=== PATIENT | male | born 2000 | race African-American/Black ===

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

== ENCOUNTER 2021-08-09 14:54 | Emergency (ER) | payer SELFPAY ==
[~2021-08-09] VITALS: Ht 190.5 cm; Wt 95.0 kg
[2021-08-09] MEDS ORDERED: IV RINGERS SOLUTION,LACTATED 1,000 ML IV ONE (16:00)
--- NOTE | 2021-08-09 16:17 | EKG ---
[address] [address] Test Date: 2021-08-09 Test Time: 16:06:44 Pat Name: XIN HAINES Department: Room: Gender: M [employer] Operator: DINESH : 2000 Requested By: HILLARY CARMEN Order Number: [id number] Reading MD: Cricket Mendieta Measurements Intervals [place] Rate: 69 P: 34 MN: 158 QRS: 54 QRSD: 92 T: 30 QT: 384 QTc: 413 Interpretive Statements SINUS RHYTHM NORMAL ECG RI6.02 No previous ECG available for comparison Electronically Signed On 08-11-2021 13:24:52 CDT by Cricket Mendieta
--- NOTE | 2021-08-09 16:19 | PHYS DOC ---
Past History Additional Past Medical Histor: obesity Past Surgical History: No Surgical History Smoking: Second-hand Alcohol Use: None Drug Use: None General Adult EDM: Chief Complaint: DIZZY/LIGHT HEADED HPI: HPI: Patient is a 21 year old obese male without significant past medical history who presents with 1 week history of lightheadedness. Patient states that about a week ago, just prior to symptom onset, he was given an consumed leftover stroganoff and pizza from a coworker. Since that time, he reports intermittent lightheadedness both while active working and also at rest. He denies any exacerbating or remitting factors. Patient reports associated nausea, but denies vomiting, diarrhea and pain of any kind (headache, chest pain, abdominal pain). Review of Systems: Review of Systems: Constitutional: Denies fever, chills or generalized weakness Eyes: Denies change in visual acuity, visual field deficits or discharge HENT: Denies ear pain, nasal congestion or sore throat Respiratory: Denies cough or shortness of breath Cardiovascular: Denies chest pain, palpitations or edema GI: Denies abdominal pain, nausea, vomiting, bloody stools or diarrhea : Denies dysuria or hematuria Musculoskeletal: Denies back pain or joint pain Integument: Denies rash or other skin lesion Neurologic: See HPI Current Medications: Current Meds: Current Medications Medications (Trade) Dose Ordered Sig/Stan Start Time Stop Time Status Last Admin Dose Admin Lactated Ringer's 1,000 ml @ 1,000 mls/hr 1X ONCE 08/09/21 16:00 08/09/21 16:59 Allergies: Allergies: Allergies Coded Allergies Type Severity Reaction Last Updated Verified No Known Drug Allergies 05/30/16 No Physical Exam: PE: Constitutional: Obese, well-groomed, no acute distress, non-toxic appearance. HENT: Normocephalic, atraumatic, bilateral external ears normal, oropharynx moist, no oral exudates, nose normal. Eyes: PERRL, EOMI, conjunctiva normal, no discharge. Neck: Normal range of motion, no stridor. Cardiovascular: Heart regular rate and rhythm. No apparent murmurs, rubs or gallops. Lungs & Thorax: Bilateral breath sounds clear to auscultation. Skin: Warm, dry, no erythema, no rash. Extremities: No cyanosis, no clubbing, ROM intact, no edema. Neurologic: Alert and oriented x4, normal motor function, normal sensory function, cerebellar function intact, no focal deficits noted. Current Patient Data: Labs: Laboratory Tests Test 08/09/21 16:32 White Blood Count 5.7 x10^3/uL (4.0-11.0) Red Blood Count 4.79 x10^6/uL (4.30-5.70) Hemoglobin 13.3 g/dL (13.0-17.5) Hematocrit 41.1 % (39.0-53.0) Mean Corpuscular Volume 86 fL (79-100) Mean Corpuscular Hemoglobin 28 pg (25-35) Mean Corpuscular Hemoglobin Concent 33 g/dL (31-37) Red Cell Distribution Width 15.0 % (11.5-14.5) Platelet Count 220 x10^3/uL (140-400) Neutrophils (%) (Auto) 67 % (31-73) Lymphocytes (%) (Auto) 24 % (24-48) Monocytes (%) (Auto) 6 % (0-9) Eosinophils (%) (Auto) 3 % (0-3) Basophils (%) (Auto) 1 % (0-3) Neutrophils # (Auto) 3.8 x10^3uL (1.8-7.7) Lymphocytes # (Auto) 1.4 x10^3/uL (1.0-4.8) Monocytes # (Auto) 0.3 x10^3/uL (0.0-1.1) Eosinophils # (Auto) 0.2 x10^3/uL (0.0-0.7) Basophils # (Auto) 0.1 x10^3/uL (0.0-0.2) Sodium Level 144 mmol/L (136-145) Potassium Level 3.7 mmol/L (3.5-5.1) Chloride Level 107 mmol/L (98-107) Carbon Dioxide Level 29 mmol/L (21-32) Anion Gap 8 (6-14) Blood Urea Nitrogen 7 mg/dL (8-26) Creatinine 0.7 mg/dL (0.7-1.3) Estimated GFR (Cockcroft-Gault) 174.0 BUN/Creatinine Ratio 10 (6-20) Glucose Level 101 mg/dL (70-99) Calcium Level 8.8 mg/dL (8.5-10.1) Magnesium Level 2.0 mg/dL (1.8-2.4) Total Bilirubin 0.2 mg/dL (0.2-1.0) Aspartate Amino Transf (AST/SGOT) 33 U/L (15-37) Alanine Aminotransferase (ALT/SGPT) 68 U/L (16-63) Alkaline Phosphatase 91 U/L (46-116) Troponin I High Sensitivity 8 ng/L (4-75) Total Protein 7.0 g/dL (6.4-8.2) Albumin 3.3 g/dL (3.4-5.0) Albumin/Globulin Ratio 0.9 (1.0-1.7) Vital Signs: VS - Last 72 Hours, by Label Date Time Temp Pulse Resp B/P (MAP) Pulse Ox O2 Delivery O2 Flow Rate FiO2 08/09/21 16:37 98.3 77 18 151/85 (107) 98 Room Air EKG: EKG: EKG Interpreted by Dr. Elizondo at 1608: Regular rate and rhythm 69 bpm with no ectopic beats. QT 384 ms/QTc 413 ms. No STEMI. Heart Score: C/O Chest Pain: No Course & Med Decision Making: Course & Med Decision Making Pertinent Labs and Imaging studies reviewed. (See chart for details) Patient is a 21-year-old obese male who presents with intermittent lightheadedness for the past week. Work-up today will include EKG, labs. Work-up today is very reassuring. Patient will be given prescription for meclizine as needed for dizziness. Patient reports he does not have insurance and does not have primary care, so a list of clinics for follow-up were provided to him today. Return precautions were provided as well. Patient understands and is agreeable to discharge plan. Dragon Disclaimer: Dragon Disclaimer: This electronic medical record was generated, in whole or in part, using a voice recognition dictation system. Departure Departure: Impression: Primary Impression: Episodic lightheadedness Additional Impression: Elevated blood pressure reading Disposition: HOME / SELF CARE / HOMELESS Condition: STABLE Referrals: PCP,NO (PCP) Patient Instructions: Dizziness, [id number], Obesity, [id number] Additional Instructions: EMERGENCY DEPARTMENT GENERAL DISCHARGE INSTRUCTIONS Thank you for coming to [facility] (ED) today and trusting us with you care. We trust that you had a positive experience in our Emergency Department. If you wish to speak to the department management, you may call the director at [phone]. YOUR FOLLOW UP INSTRUCTIONS ARE FOLLOWS: 1. Follow up with your primary care doctor. If you do not have a primary doctor, please ask for a resource list of physicians or clinics that may be able to assist you with follow up care. 2. The emergency provider has interpreted your imaging studies, if any were ordered. The radiology phone triage specialist also reviewed them. If there is a change in the findings, you will be notified in 48 hours when at all possible. 3. If a lab test or culture has been done, your results will be reviewed and you will be notified if you need a change in treatment. 4. Follow instructions verbalized to you and refer to the printouts if needed. ADDITIONAL INSTRUCTIONS AND INFORMATION: 1. Your care today has been supervised by a physician who is specially trained in emergency care. Many problems require more than one evaluation for a complete diagnosis and treatment. We recommend that you schedule your follow up appointment as recommended to ensure complete treatment of you illness or injury. If you are unable to obtain follow up care and continue to have a problem, or if your condition worsens, we recommend that you return to the ED. 2. We are not able to safely determine your condition over the phone nor are we able to give sound medical advice over the phone. For these safety reasons, if you call for medical advice we will ask you to come to the ED for further evaluation. 3. If you have any questions regarding these discharge instructions please call the ED at [phone]. SAFETY INFORMATION: In the interest of safety, wellness, and injury prevention; we encourage you to wear your seat belt, if you smoke; quite smoking, and we encourage family to use a protective helmet for bicycling and other sporting events that present an increased risk for head injury. IF YOUR SYMPTOMS WORSEN OR NEW SYMPTOMS DEVELOP, OR YOU HAVE CONCERNS ABOUT YOUR CONDITION; OR IF YOUR CONDITION WORSENS WHILE YOU ARE WAITING FOR YOUR FOLLOW UP APPOINTMENT; EITHER CONTACT YOUR PRIMARY CARE DOCTOR, THE PHYSICIAN WHOSE NAME AND NUMBER YOU WERE GIVEN, OR RETURN TO THE ED IMMEDIATELY. Scripts Meclizine Hcl (MECLIZINE HCL) 25 Mg Tablet 1 TAB PO PRN TID for dizziness, #30 TAB 0 Refills Prov: HILLARY CARMEN 08/09/21 HILLARY CARMEN Aug 09, 2021 16:19
[2021-08-09 16:37] VITALS: BP 151/85
[2021-08-09 16:50] LABS: BASO # 0.1 x10^3/uL (0.0-0.2); BASO % 1 % (0-3); EOS # 0.2 x10^3/uL (0.0-0.7); EOS % 3 % (0-3); HEMATOCRIT 41.1 % (39.0-53.0); HEMOGLOBIN 13.3 g/dL (13.0-17.5); LYMPH # 1.4 x10^3/uL (1.0-4.8); LYMPH % 24 % (24-48); MEAN CORPUSCULAR HEMOGLOBIN 28 pg (25-35); MEAN CORPUSCULAR HGB CONC 33 g/dL (31-37); MEAN CORPUSCULAR VOLUME 86 fL (79-100); MONO # 0.3 x10^3/uL (0.0-1.1); MONO % 6 % (0-9); NEUT # 3.8 x10^3uL (1.8-7.7); NEUT % 67 % (31-73); PLATELET COUNT 220 x10^3/uL (140-400); RED BLOOD COUNT 4.79 x10^6/uL (4.30-5.70); WHITE BLOOD COUNT 5.7 x10^3/uL (4.0-11.0)
[2021-08-09 17:03] LABS: CALCIUM 8.8 mg/dL (8.5-10.1); CREATININE 0.7 mg/dL (0.7-1.3); POTASSIUM 3.7 mmol/L (3.5-5.1)
[2021-08-09 17:09] LABS: ALBUMIN 3.3 g/dL (3.4-5.0); ALBUMIN/GLOBULIN RATIO 0.9 (1.0-1.7); TOTAL BILIRUBIN 0.2 mg/dL (0.2-1.0)
[2021-08-09] MEDS ORDERED: MECL-75 PO (17:21)
== END 2021-08-09 18:05 | disposition home or self-care (01) ==
LOC: ER 14:54
DX: R03.0 Elevated blood-pressure reading, without diagnosis of hypertension (principal); R42 Dizziness and giddiness; R11.0 Nausea; E66.9 Obesity, unspecified; Z77.22 Contact with and (suspected) exposure to environmental tobacco smoke (acute) (chronic); Z68.26 Body mass index [BMI] 26.0-26.9, adult
CPT/HCPCS: 36415; 80053; 83735; 84484; 85025; 93005; 96360; 96361; 99284; J7120